=== PATIENT | male | born 1980 | race Caucasian/White ===

== ENCOUNTER 2016-11-06 15:02 | Emergency (ER) | payer OTHER ==
[~2016-11-06] VITALS: Ht 182.9 cm; Wt 72.4 kg
[~2016-11-06 15:02] MED LIST: LORTAB 5/500 501 TAB PO; NO HOME MEDICATIONS
[2016-11-06 15:05] VITALS: BP 111/69; TEMP 98.5
[2016-11-06] MEDS ORDERED: FLEXERIL 1010 MG/TAB PO (16:19)
[2016-11-06] MEDS ORDERED: NORCO 325 MG-51 TAB PO (16:49)
[2016-11-06 17:16] VITALS: PULSE 89
== END 2016-11-06 17:12 | disposition home or self-care (01) ==
LOC: COL.ER 15:02
DX: M54.5 Low back pain (principal)
CPT/HCPCS: J1170; J1885; J3360

== ENCOUNTER → 2022-07-17 | Outpatient (CLI) | payer OTHER ==
[~2022-07-17] MED LIST changes: +FLEXERIL 1010 MG/TAB PO; +NORCO 325 MG-51 TAB PO
== END ==
LOC: COL.PUL 07:30
DX: R06.02 Shortness of breath (principal)